=== PATIENT | male | born 1935 | race Caucasian/White ===

== ENCOUNTER → 2016-09-25 | Outpatient (CLI) | payer OTHER ==
[~2016-09-25] MED LIST: CLOT1CRE80 TOP; CO Q PO; FINA5TAB PO; OMEG10007 PO; POLYSOL4 OPB; PRED1SUS3 OPB
== END | disposition home or self-care (01) ==
LOC: C.LAB 07:53
PROVIDERS: ATTEND Urology
DX: Z00.00 Encounter for general adult medical examination without abnormal findings (principal); N40.0 Benign prostatic hyperplasia without lower urinary tract symptoms

== ENCOUNTER → 2016-12-18 | Outpatient (CLI) | payer OTHER ==
--- NOTE | 2016-12-18 16:06 | DIAGNOSTIC IMAGING REPORT ---
CHEST 2 VIEWS ROUTINE CLINICAL HISTORY: COUGH dyspnea COMPARISON STUDY: 11/04/2014 FINDINGS: Mild emphysematous change. No focal infiltrate. No evidence for significant cardiac enlargement. IMPRESSION: Chronic change. No acute process. Electronically signed by: Lucien Sidhu M.D. 12/18/2016 4:04 PM Dictated Date/Time: 12/18/2016 4:04 PM
== END | disposition home or self-care (01) ==
LOC: C.RADBC 15:55
PROVIDERS: ATTEND Physician Assistant Medical
DX: R05 Cough (principal)

== ENCOUNTER → 2017-09-25 | Outpatient (CLI) | payer OTHER ==
[2017-09-25 16:42] LABS: BASO % 0.3 %; BASO ABS # 0.02 K/uL (0-0.2); EOS % 3.6 %; EOS ABS # 0.25 K/uL (0-0.5); HEMATOCRIT 40.9 % (42-52); HEMOGLOBIN 14.1 g/dL (14.0-18.0); IG# 0.01 K/uL (0.00-0.02); LYMPH % 17.8 %; LYMPH ABS # 1.25 K/uL (1.2-3.4); MEAN CELL VOLUME 96.5 fL (80-100); MEAN CORPUSCULAR HEMOGLOBIN 33.3 pg (25-34); MEAN CORPUSCULAR HGB CONC 34.5 g/dl (32-36); MEAN PLATELET VOLUME 9.3 fL (7.4-10.4); MONO % 10.1 %; MONO ABS # 0.71 K/uL (0.11-0.59); NEUT % 68.1 %; PLATELET COUNT 204 K/uL (130-400); RED CELL DISTRIBUTION WIDTH CV 13.2 % (11.5-14.5); RED CELL DISTRIBUTION WIDTH SD 46.5 fL (36.4-46.3); WHITE BLOOD COUNT 7.04 K/uL (4.8-10.8)
[2017-09-25 17:05] LABS: ALBUMIN 3.6 gm/dl (3.4-5.0); ALT/SGPT 26 U/L (12-78); BLOOD UREA NITROGEN 20 mg/dl (7-18); CALCIUM 8.3 mg/dl (8.5-10.1); CARBON DIOXIDE 27 mmol/L (21-32); CREATININE 1.01 mg/dl (0.60-1.40); GLUCOSE 90 mg/dl (70-99); POTASSIUM 3.9 mmol/L (3.5-5.1); SODIUM 130 mmol/L (136-145); URIC ACID 5.2 mg/dl (2.6-7.2)
[2017-09-25 17:18] LABS: ALKALINE PHOSPHATASE 71 U/L (45-117); AST/SGOT 31 U/L (15-37); TOTAL PROTEIN 6.4 gm/dl (6.4-8.2)
== END | disposition home or self-care (01) ==
LOC: C.LAB 15:12
PROVIDERS: ATTEND Nurse Practitioner Family
DX: M79.671 Pain in right foot (principal)

== ENCOUNTER → 2017-09-27 | Outpatient (CLI) | payer OTHER ==
--- NOTE | 2017-09-27 16:04 | DIAGNOSTIC IMAGING REPORT ---
R FOOT MIN 3 VIEWS ROUTINE CLINICAL HISTORY: M79.671 Acute foot pain, [id number] pain COMPARISON: None. DISCUSSION: Considerable degenerative change first metatarsal phalangeal joint. Subchondral cyst formation. Mild reactive osteophytic change. Findings consistent with screw fixation distal aspects of the second third and fourth metatarsals. This is considered a nonacute process. Small heel spur. Subtalar joint is intact. There is no evidence for soft tissue swelling. IMPRESSION: 1. Considerable degenerative change first metatarsophalangeal joint. 2. Postoperative changes distal aspects second third and fourth metatarsals. 3. Small heel spur. The above report was generated using voice recognition software. It may contain grammatical, syntax or spelling errors. Electronically signed by: Lucien Sidhu M.D. 09/27/2017 4:02 PM Dictated Date/Time: 09/27/2017 4:01 PM
--- NOTE | 2017-09-27 16:05 | DIAGNOSTIC IMAGING REPORT ---
LEFT FOOT 3 VIEWS HISTORY: Left foot pain COMPARISON: None. FINDINGS: There is no fracture or dislocation. Soft tissues are unremarkable. Mild osteoarthritis the first MTP joint. Small plantar heel spur. Mild vascular calcifications. IMPRESSION: No fracture or dislocation within the left foot. Electronically signed by: Keon Pineda M.D. 09/27/2017 4:04 PM Dictated Date/Time: 09/27/2017 4:02 PM
== END | disposition home or self-care (01) ==
LOC: C.RAD 15:27
PROVIDERS: ATTEND Nurse Practitioner Family
DX: M79.671 Pain in right foot (principal)

== ENCOUNTER 2017-10-24 11:53 | Emergency (ER) | payer OTHER ==
[~2017-10-24] VITALS: Ht 175.3 cm; Wt 68.5 kg
[2017-10-24 12:01] VITALS: BP 123/79; PULSE 63; TEMP 36.6; O2SAT 99; Ht 175.3 cm; Wt 68.5 kg
[2017-10-24] MEDS ORDERED: ASPI81TA28 PO (12:24)
[2017-10-24] MEDS ORDERED: PRDFOPS OPB (12:24)
[2017-10-24] MEDS ORDERED: GALA8TAB PO (12:24)
[2017-10-24] MEDS ORDERED: APOA1CAP PO (12:24)
[2017-10-24] MEDS ORDERED: MIRA100T PO (12:24)
--- NOTE | 2017-10-24 13:38 | EMERGENCY ROOM VISIT NOTE ---
History Report prepared by Vera: Micheal Joshi Under the Supervision of: Dr. Feliberto House M.D. First contact with patient: 12:14 Chief Complaint: URINARY SYMPTOMS Stated Complaint: URINARY TRACT INFECTION Nursing Triage Summary: uti s/s for 2 weeks urologist unable to see him pt in ER with and would like urine test History of Present Illness The patient is a 81 year old male who presents to the Emergency Room with complaints of persistent urinary symptoms beginning two weeks ago. The patient' s symptoms include increased urinary frequency (usually at night) and lower back pain. He denies any pain with urination or hematuria. He rates his lower back pain as a 3/10 in severity. The patient tried to get in to see his PCP today, but was unable. He denies any abdominal pain or bloody stools. He is on medication for an enlarged prostate. The patient has used a heating pad at night for his back pain which has helped. He notes that he was shoveling snow yesterday and this may have caused his back pain. He denies drinking more water than normal recently. The patient adds that he mostly came to the ED today because he came along with his who is being evaluated for flu-like symptoms. Source of History: patient Onset: Two weeks ago Quality: other (urinary symptoms) Timing: other (persistent) Associated Symptoms: + back pain (lower), No abdominal pain, No hematochezia Note: The patient denies hematuria or pain with urination. Review of Systems See HPI for pertinent positives and negatives. A total of ten systems were reviewed and were otherwise negative. Past Medical & Surgical Medical Problems: (1) Arthritis (2) Cataract removal Surgical Problems: (1) H/O cornea transplant Family History Cancer Social History Smoking Status: Never Smoker Alcohol Use: occasionally Marital Status: Housing Status: lives with significant other Occupation Status: retired Current/Historical Medications Scheduled Apoaequorin (Prevagen), 10 MG PO DAILY Aspirin (Aspirin Ec), 81 MG PO DAILY Finasteride (Proscar), 5 MG PO DAILY Fish Oil ([place]-3), 1 CAP PO DAILY Galantamine Hydrobromide (Razadyne), 8 MG PO BID Mirabegron (Myrbetriq Er), 25 MG PO DAILY Prednisolone Acetate (Prednisolone Acetate), 1 DROP OPB DAILY Allergies Coded Allergies: No Known Allergies (Unverified , 09/15/13) Physical Exam Vital Signs Date Time Temp Pulse Resp B/P (MAP) Pulse Ox O2 Delivery O2 Flow Rate FiO2 10/24/17 12:01 36.6 63 20 123/79 99 Room Air Physical Exam GENERAL: Awake, alert, well-appearing, in no distress HENT: Normocephalic, Atraumatic. no hemotympanum bilaterally, lynne sign negative bilaterally. Oropharynx unremarkable. EYES: Normal conjunctiva. Sclera non-icteric. PERRL bilaterally. EOMI bilaterally. NECK: Supple. No nuchal rigidity. FROM. No JVD. No C-spine tenderness. RESPIRATORY: Clear to auscultation. No wheezes, rhonchi or rales bilaterally. CARDIAC: Regular rate, normal rhythm. Extremities warm and well perfused. Equal palpable radial pulses to the bilateral upper extremities. Equal palpable DP pulses to the bilateral lower extremities. ABDOMEN: Soft, non-distended. No tenderness to palpation. No rebound or guarding. No masses. Rovsig Negative. RECTAL: Deferred. MUSCULOSKELETAL: Chest examination reveals no tenderness. The back is symmetrical on inspection without obvious abnormality. There is no CVA tenderness to palpation. No joint edema. no c t or l spine tenderness LOWER EXTREMITIES: Calves are equal size bilaterally and non-tender. No edema. No discoloration. NEURO: Normal sensorium. No sensory or motor deficits noted. No pronator drift. No facial droop. No dysarthria. SKIN: No rash or jaundice noted. Medical Decision & Procedures Laboratory Results Test 10/24/17 12:10 Urine Color YELLOW Urine Appearance CLEAR (CLEAR) Urine pH 6.0 (4.5-7.5) Urine Specific [place] 1.015 (1.000-1.030) Urine Protein NEG (NEG) Urine Glucose (UA) NEG (NEG) Urine Ketones NEG (NEG) Urine Occult Blood NEG (NEG) Urine Nitrite NEG (NEG) Urine Bilirubin NEG (NEG) Urine Urobilinogen NEG (NEG) Urine Leukocyte Esterase NEG (NEG) Laboratory results reviewed by [facility] Course 1313: The patient was evaluated in room A2. A complete history and physical exam was performed. 1327: The patient's vital signs are stable. Physical exam is completely within normal limits. Urine is within normal limits with no blood. No CVA tenderness on exam. No cervical, thoracic, or lumbar tenderness. Given the normal physical exam, no emergent imaging warranted at this time. Patient will follow up with his urologist, and states that he just wanted to be sure he didn't have a UTI while his was evaluated in the ED for flu-like symptoms. Polyuria is likely due to BPH. DISCHARGE - Plan of care discussed with family and questions answered. The family was given both verbal and printed discharge instructions. The family verbalized understanding and ability to comply. The family is to seek outpatient follow up as noted in the discharge instructions. The family verbalized understanding and ability to comply. The family is discharged in stable condition. The family was instructed to return for worsening symptoms. Medical Decision The patient's vital signs are stable. Physical exam is completely within normal limits. Urine is within normal limits with no blood. No CVA tenderness on exam. No cervical, thoracic, or lumbar tenderness. Given the normal physical exam, no emergent imaging warranted at this time. Patient will follow up with his urologist, and states that he just wanted to be sure he didn't have a UTI while his was evaluated in the ED for flu-like symptoms. Polyuria is likely due to BPH. DISCHARGE - Plan of care discussed with family and questions answered. The family was given both verbal and printed discharge instructions. The family verbalized understanding and ability to comply. The family is to seek outpatient follow up as noted in the discharge instructions. The family verbalized understanding and ability to comply. The family is discharged in stable condition. The family was instructed to return for worsening symptoms. Medication Reconcilliation Current Medication List: was personally reviewed by me Blood Pressure Screening Patient's blood pressure: Normal blood pressure Blood pressure disposition: Did not require urgent referral Impression Primary Impression: Nocturnal polyuria Additional Impression: BPH (benign prostatic hyperplasia) Scribe Attestation The scribe's documentation has been prepared under my direction and personally reviewed by me in its entirety. I confirm that the note above accurately reflects all work, treatment, procedures, and medical decision making performed by me. The chart was completed utilizing [employer] voice recognition software. Grammatical errors, random word insertions, pronoun errors, and incomplete sentences are an occasional consequence of this system due to software limitations, ambient noise, and hardware issues. Any formal questions or concerns about the content, text, or information contained within the body of this dictation should be directly addressed to the physician for clarification. Departure Information Dispostion Home / Self-Care Referrals Annia Cruz MD (PCP) Forms HOME CARE DOCUMENTATION FORM, IMPORTANT VISIT INFORMATION Patient Instructions Benign Prostatic Hyperplasia, My [facility] [place] Additional Instructions Return to the emergency department if you develop blood in urine, pain with urination, fever greater than 100.4, inability to urinate, Problem Qualifiers Additional Impression: BPH (benign prostatic hyperplasia) Lower urinary tract symptom presence: unspecified whether lower urinary tract symptoms present Qualified Codes: N40.0 - Benign prostatic hyperplasia without lower urinary tract symptoms
== END 2017-10-24 13:29 | disposition home or self-care (01) ==
LOC: C.EDB 12:03 → C.EDA 13:29
DX: N40.1 Benign prostatic hyperplasia with lower urinary tract symptoms (principal); R35.1 Nocturia; M19.90 Unspecified osteoarthritis, unspecified site; Z98.49 Cataract extraction status, unspecified eye; Z94.7 Corneal transplant status; Z80.9 Family history of malignant neoplasm, unspecified; Z79.82 Long term (current) use of aspirin; Z79.899 Other long term (current) drug therapy

== ENCOUNTER → 2017-11-19 | Outpatient (CLI) | payer OTHER ==
[~2017-11-19] MED LIST changes: +APOA1CAP PO; +ASPI81TA28 PO; -CLOT1CRE80 TOP; -CO Q PO; +GALA8TAB PO; +MIRA100T PO; -POLYSOL4 OPB; +PRDFOPS OPB; -PRED1SUS3 OPB
[2017-11-19 15:39] LABS: BASO % 0.2 %; BASO ABS # 0.02 K/uL (0-0.2); EOS % 2.3 %; EOS ABS # 0.19 K/uL (0-0.5); HEMATOCRIT 41.8 % (42-52); HEMOGLOBIN 14.7 g/dL (14.0-18.0); IG# 0.01 K/uL (0.00-0.02); LYMPH % 19.8 %; LYMPH ABS # 1.67 K/uL (1.2-3.4); MEAN CELL VOLUME 94.8 fL (80-100); MEAN CORPUSCULAR HEMOGLOBIN 33.3 pg (25-34); MEAN CORPUSCULAR HGB CONC 35.2 g/dl (32-36); MEAN PLATELET VOLUME 8.8 fL (7.4-10.4); MONO % 8.2 %; MONO ABS # 0.69 K/uL (0.11-0.59); NEUT % 69.4 %; NEUT ABS # 5.86 K/uL (1.4-6.5); PLATELET COUNT 263 K/uL (130-400); RED CELL DISTRIBUTION WIDTH CV 13.2 % (11.5-14.5); RED CELL DISTRIBUTION WIDTH SD 45.8 fL (36.4-46.3); WHITE BLOOD COUNT 8.44 K/uL (4.8-10.8)
[2017-11-19 16:18] LABS: ALBUMIN 3.5 gm/dl (3.4-5.0); ALT/SGPT 23 U/L (12-78); AST/SGOT 17 U/L (15-37); BLOOD UREA NITROGEN 22 mg/dl (7-18); CALCIUM 8.6 mg/dl (8.5-10.1); CARBON DIOXIDE 28 mmol/L (21-32); CREATININE 1.02 mg/dl (0.60-1.40); GLUCOSE 104 mg/dl (70-99); LIPASE 351 U/L (73-393); POTASSIUM 3.9 mmol/L (3.5-5.1); SODIUM 132 mmol/L (136-145)
[2017-11-19 16:21] LABS: ALKALINE PHOSPHATASE 96 U/L (45-117); TOTAL PROTEIN 6.7 gm/dl (6.4-8.2)
== END | disposition home or self-care (01) ==
LOC: C.LAB 14:34
PROVIDERS: ATTEND Nurse Practitioner Family
DX: R11.10 Vomiting, unspecified (principal)

== ENCOUNTER → 2017-11-20 | Outpatient (CLI) | payer OTHER | END | disposition home or self-care (01) | LOC: C.LAB 14:37 | PROVIDERS: ATTEND Nurse Practitioner Family | DX: R11.10 Vomiting, unspecified (principal) ==

== ENCOUNTER → 2017-11-26 | Outpatient (CLI) | payer OTHER | END | disposition home or self-care (01) | LOC: C.RDSM 14:45 | PROVIDERS: ATTEND Family Medicine | DX: M54.5 Low back pain (principal) ==

== ENCOUNTER → 2017-12-03 | Outpatient (CLI) | payer OTHER ==
[~2017-12-03] MED LIST changes: +OPTIRAY 320 IV PRN
--- NOTE | 2017-12-03 13:49 | DIAGNOSTIC IMAGING REPORT ---
CT ABD/PELVIS IV AND ORAL CONT CLINICAL HISTORY: R19.4 Change in bowel habits R63.4 Weight loss, [id number]. COMPARISON STUDY: 09/15/2013 TECHNIQUE: Following the IV administration of 93 mL of Optiray-320, CT scan of the abdomen and pelvis was performed from the lung bases to the proximal femurs. Images are reviewed in the axial, sagittal, and coronal planes. IV contrast was administered without complication. A dose lowering technique was utilized adhering to the principles of ALARA. CT DOSE: 269.22 mGy.cm FINDINGS: Lower chest: The heart is normal in size and configuration, without pericardial effusion. The lung bases and pleural spaces are clear. Liver: The contrast-enhanced liver is normal in size, contour, and attenuation. There is no intrahepatic biliary ductal dilatation. The hepatic veins and portal veins are patent. Gallbladder: Unremarkable. Spleen: Normal in size and attenuation. Pancreas: Unremarkable. Adrenal glands: Unremarkable. Kidneys: There is symmetric renal cortical enhancement. The kidneys are normal in size without hydronephrosis. 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 There is no evidence of acute diverticulitis. There are no findings to indicate acute appendicitis. There is mild fecal retention. Peritoneum: There is no intraperitoneal free air or abdominal ascites. There is a small fat-containing right inguinal hernia. Vasculature: The abdominal aorta is normal in course and caliber. Adenopathy: None. Pelvic viscera: The bladder, and pelvic viscera are unremarkable. Skeletal structures: No destructive osseous lesions are seen. IMPRESSION: 1. No acute abdominal or pelvic findings 2. No evidence of bowel obstruction. No evidence of free air 3. No acute inflammatory changes 4. Small fat-containing right inguinal hernia Electronically signed by: Edmar Waldrop M.D. 12/03/2017 1:47 PM Dictated Date/Time: 12/03/2017 1:42 PM
== END | disposition home or self-care (01) ==
LOC: C.CTS 13:04
PROVIDERS: ATTEND Physician Assistant
DX: R63.4 Abnormal weight loss (principal); R11.10 Vomiting, unspecified; R19.4 Change in bowel habit

== ENCOUNTER → 2018-01-03 | Day surgery (SDC) | payer OTHER ==
[2017-12-12 16:08] VITALS: Ht 177.8 cm; Wt 67.3 kg
[~2018-01-03] VITALS: Ht 177.8 cm; Wt 67.3 kg
[~2018-01-03] MED LIST changes: +MISCCAP80 PO; +NAPR-1169 PO; -OPTIRAY 320 IV PRN; +PRLSR20 PO; +SODIUM CHLORIDE 0.9% 500ML 500 ML IV ONE
--- NOTE | 2018-01-03 12:25 | Endo History and Physical ---
History & Physical Date of Service: Jan 03, 2018. Chief Complaint: Weight loss Referring Physician: Annia Cruz History of Present Illness 82 yo CM who presents for EGD secondary to weight loss. Past Surgical History Hx Cardiac Surgery: No Hx Internal Defibrillator: No Hx Pacemaker: No Hx Abdominal Surgery: Yes (BILATERAL INGUINAL HERNIA REPAIR) Hx of Implantable Prosthesis: No Hx Post-Op Nausea and Vomiting: No Hx Cancer Surgery: No Hx Thoracic Surgery: No Hx Orthopedic: No Hx Urinary Tract Surgery: No Family History None Social History Smoking Status: Never Smoker Hx Substance Use: No Hx Alcohol Use: Yes (1X A MONTH) Allergies Coded Allergies: No Known Allergies (Unverified , 01/03/18) Current Medications Reported Home Medications Medications Dose Route/Sig Max Daily Dose Days Date Category Naprosyn (Naproxen) 500 Mg Tab 500 Mg PO BID 01/03/18 Reported Probiotic (Probiotic Product) 1 Cap Cap 1 Cap PO QPM 12/12/17 Reported Prilosec (Omeprazole) 20 Mg Capcr 20 Mg PO BID 12/12/17 Reported Prevagen (Apoaequorin) 10 Mg Cap 10 Mg PO QAM 10/24/17 Reported Prednisolone Acetate 75 Drops/5 Ml Susp 1 Drop OPB QAM 10/24/17 Reported Razadyne (Galantamine Hydrobromide) 8 Mg Tab 8 Mg PO BID 10/24/17 Reported Aspirin Ec (Aspirin) 81 Mg Tab 81 Mg PO QPM 10/24/17 Reported Myrbetriq Er (Mirabegron) 25 Mg Tab 25 Mg PO QAM 10/24/17 Reported [place]-3 (Fish Oil) 1 Ea Cap 1 Cap PO QPM 09/15/13 Reported Proscar (Finasteride) 5 Mg Tab 5 Mg PO QAM 09/15/13 Reported Vital Signs Weight (Kilograms): 67.27 Height (Feet): 5 Height (Inches): 10 Date Time Temp Pulse Resp B/P (MAP) Pulse Ox O2 Delivery O2 Flow Rate FiO2 01/03/18 11:52 36.5 73 22 152/99 (116) 100 Room Air Physical Exam General Appearance: WD/WN, no apparent distress Respiratory/Chest: Auscultation: breath sounds normal Cardiovascular: Heart Auscultation: RRR Abdomen: Bowel Sounds: normal Inspection & Palpation: soft, non-distended, no tenderness, guarding & rebound Assessment and Plan Assessment: 82 yo CM who presents for EGD secondary to weight loss. Plan: Proceed with EGD.
--- NOTE | 2018-01-03 12:43 | Discharge Instructions ---
Endoscopy Patient Instructions Date / Procedure(s) Performed Jan 03, 2018. EGD Allergy Information Coded Allergies: No Known Allergies (Unverified , 01/03/18) Discharge Date / Findings Jan 03, 2018. Normal EGD Medication Instructions Stopped Medication(s): 81mg Aspirin taken on 01/02/18 OK to resume all medications today as prescribed Reported Home Medications Medications Dose Route/Sig Max Daily Dose Days Date Category Naprosyn (Naproxen) 500 Mg Tab 500 Mg PO BID 01/03/18 Reported Probiotic (Probiotic Product) 1 Cap Cap 1 Cap PO QPM 12/12/17 Reported Prilosec (Omeprazole) 20 Mg Capcr 20 Mg PO BID 12/12/17 Reported Prevagen (Apoaequorin) 10 Mg Cap 10 Mg PO QAM 10/24/17 Reported Prednisolone Acetate 75 Drops/5 Ml Susp 1 Drop OPB QAM 10/24/17 Reported Razadyne (Galantamine Hydrobromide) 8 Mg Tab 8 Mg PO BID 10/24/17 Reported Aspirin Ec (Aspirin) 81 Mg Tab 81 Mg PO QPM 10/24/17 Reported Myrbetriq Er (Mirabegron) 25 Mg Tab 25 Mg PO QAM 10/24/17 Reported [place]-3 (Fish Oil) 1 Ea Cap 1 Cap PO QPM 09/15/13 Reported Proscar (Finasteride) 5 Mg Tab 5 Mg PO QAM 09/15/13 Reported Provider Instructions Activity Restrictions - No exercising or heavy lifting for 24 hours. - Do not drink alcohol the day of the procedure. - Do not drive a car or operate machinery until the day after the procedure. - Do not make any important decisions or sign important papers in 24 hours after the procedure. Following Day: - Return to full activity which may include returning to work/school. Diet Start your diet with liquids and light foods (jello, soup, juice, toast). Then eat your usual diet if not nauseated. Treatment For Common After Affects For mild abdominal pain, bloating, or excessive gas: - Rest - Eat lightly - Lie on right side Follow-Up Information Follow-up with Annia Cruz as scheduled Anesthesia Information What You Should Know You have had a procedure that required some medicine to reduce anxiety and discomfort. This treatment is called moderate sedation. After receiving the treatment, you may be sleepy, but you will be able to breathe on your own. The effects of the treatment may last for several hours. Follow these instructions along with Activity/Diet recommendations noted above: * Do NOT do anything where dizziness or clumsiness would be dangerous. * Rest quietly at home today, then you can be up and about tomorrow. * Have a responsible person stay with you the rest of today. * You may have had an I.V. today. If so, you may take the dressing off later today. Recommendations Call your doctor if: * Trouble breathing * Continuous vomiting for more than 24 hours * Temperature above 101 degrees * Severe abdominal pain or bloating * Pain not relieved by pain medicine ordered * There is increased drainage or redness from any incision * A large amount of rectal bleeding greater than 2-3 tablespoons. (If you had a polyp/s removed or have hemorrhoids, a small amount of blood - from the rectum is to be expected.) * You have any unanswered questions or concerns. IN THE EVENT OF A SERIOUS EMERGENCY, GO TO THE NEAREST EMERGENCY ROOM Your discharge instructions were prepared by provider Robel Onofre. Patient Instructions Signature Page Ziggy Emerson Patient (or Guardian) Signature/Date: I have read and understand the instructions given to me by my caregivers. Caregiver/RN/Doctor Signature/Date: The above-named patient and/or guardian has received patient instructions on this date. + Original Patient Signature Page (only) stays with chart. Please make copy for patient.
--- NOTE | 2018-01-03 12:43 | GI REPORT ---
Procedure Date: 01/03/2018 12:28 PM Procedure: Upper GI endoscopy Indications: Weight loss Medicines: Monitored Anesthesia Care Complications: No immediate complications. Estimated Blood Loss: Estimated blood loss: none. Procedure: Pre-Anesthesia Assessment: - Prior to the procedure, a History and Physical was performed, and patient medications and allergies were reviewed. The patient's tolerance of previous anesthesia was also reviewed. The risks and benefits of the procedure and the sedation options and risks were discussed with the patient. All questions were answered, and informed consent was obtained. Prior Anticoagulants: The patient has taken aspirin, last dose was 1 day prior to procedure. ASA Grade Assessment: II - A patient with mild systemic disease. After reviewing the risks and benefits, the patient was deemed in satisfactory condition to undergo the procedure. After obtaining informed consent, the endoscope was passed under direct vision. Throughout the procedure, the patient's blood pressure, pulse, and oxygen saturations were monitored continuously. The On-site loaner was introduced through the mouth, and advanced to the second part of duodenum. The upper GI endoscopy was accomplished without difficulty. The patient tolerated the procedure well. Findings: The esophagus was normal. The stomach was normal. The examined duodenum was normal. Impression: - Normal esophagus. - Normal stomach. - Normal examined duodenum. - No specimens collected. Recommendation: - Resume previous diet. - Continue present medications. - Return to primary care physician as previously scheduled. Robel Onofre, DO 01/03/2018 12:42:59 PM This report has been signed electronically. Note Initiated On: 01/03/2018 12:28 PM I attest to the content of the Intraoperative Record and orders documented therein, exceptions below
--- NOTE | 2018-01-03 13:06 | Anesthesiology Progress Note ---
Anesthesia Post Op Note Date & Time Jan 03, 2018 at 13:06 Vital Signs Vital Signs Past 12 Hours Date Time Temp Pulse Resp B/P (MAP) Pulse Ox O2 Delivery O2 Flow Rate FiO2 01/03/18 11:52 36.5 73 22 152/99 (116) 100 Room Air Notes Mental Status: alert / awake / arousable, participated in evaluation Pt Amnestic to Procedure: Yes Nausea / Vomiting: adequately controlled Pain: adequately controlled Airway Patency, RR, SpO2: stable & adequate BP & HR: stable & adequate Hydration State: stable & adequate Anesthetic Complications: no major complications apparent
[2018-01-03 13:20] VITALS: BP 157/97; PULSE 74; O2SAT 98
== END | disposition home or self-care (01) ==
LOC: C.GI 11:32
PROVIDERS: ATTEND Internal Medicine
DX: R63.4 Abnormal weight loss (principal); F41.9 Anxiety disorder, unspecified; K21.9 Gastro-esophageal reflux disease without esophagitis; M19.90 Unspecified osteoarthritis, unspecified site; Z98.890 Other specified postprocedural states; Z79.899 Other long term (current) drug therapy; Z79.82 Long term (current) use of aspirin; Z79.52 Long term (current) use of systemic steroids

== ENCOUNTER → 2018-01-17 | Outpatient (CLI) | payer OTHER ==
[~2018-01-17] MED LIST changes: -SODIUM CHLORIDE 0.9% 500ML 500 ML IV ONE
--- NOTE | 2018-01-17 10:57 | DIAGNOSTIC IMAGING REPORT ---
MRI OF THE LUMBAR SPINE WITHOUT IV CONTRAST CLINICAL HISTORY: Low back pain. COMPARISON STUDY: Abdominal CT dated 12/03/2017. TECHNIQUE: MRI of the lumbar spine is performed utilizing various T1 and T2 sequences in the axial and sagittal planes. IV contrast was not administered for this examination. The examination is degraded by motion artifact. FINDINGS: Lumbar spine: Marrow signal intensity is markedly heterogeneous. Vertebral body height is maintained throughout the lumbar spine. There are bilateral pars defects at L5 with 8 mm anterolisthesis at L5-S1. Minimal anterolisthesis is seen at L4-L5. A mild compression deformity of T11 and a moderate compression deformity of T12 are similar to the 12/03/2017 CT scan. There is significant edema within the body of T12 indicating that this fracture is likely subacute. Small fragments are retropulsed by up to 4 mm. There is extensive chronic degenerative endplate change with associated endplate edema seen at all lumbar levels. The transverse and spinous processes are intact as visualized. No lytic or blastic lesion is seen. Anterior osteophytes are seen throughout. Intervertebral discs: There is degenerative disc desiccation and advanced loss of height seen at all lumbar levels. Spinal cord: The visualized spinal cord is normal in morphology and signal intensity. The conus medullaris terminates at the level of L1. The nerve roots of the cauda equina are normal in morphology. L1-L2: There is a posterior disc bulge eccentric to the right with annular fissure. This causes right-sided subarticular stenosis and likely impinges on the exiting right L1 and the transiting right L2 nerve roots. There is no significant acquired compromise of the central canal. The neural foramina are patent. L2-L3: There is broad-based posterior disc bulge. There is no significant acquired compromise of the central canal. There is bilateral subarticular stenosis, right greater than left. This likely impinges on the exiting right L2 and transiting right L3 nerve roots. Facet arthropathy causes mild left-sided neural foraminal stenosis. L3-L4: There is broad-based posterior disc bulge. There is no significant acquired compromise of the central canal at this level. Facet arthropathy causes moderate left neural foraminal stenosis. There is bilateral subarticular stenosis, left greater than right. This likely impinges on the exiting left L3 nerve root. Hypertrophy of the ligamentum flavum and osteophyte formation may impinge on the transiting left-sided nerve roots. L4-L5: There is broad-based posterior disc bulge. There is no significant acquired compromise of the central canal. There is bilateral subarticular stenosis with impingement on the exiting bilateral L4 nerve roots. Bulky facet arthropathy causes severe left and moderate right neural foraminal stenosis. Facet arthropathy may impinge on the transiting bilateral nerve roots posteriorly. L5-S1: There is posterior disc bulge eccentric to the right. No significant acquired compromise of the central canal is identified. Disc bulge in conjunction with anterolisthesis causes right-sided subarticular stenosis with impingement on the exiting right L5 nerve root. This also abuts the transiting left L1 nerve root. Facet arthropathy causes moderate to severe right-sided neural foraminal stenosis. Soft tissues: There is mild fatty atrophy of the paraspinous musculature. The retroperitoneal structures are grossly unremarkable, but incompletely assessed. Sacrum: The visualized sacrum is normal in morphology and signal intensity. IMPRESSION: 1. There is a moderate compression deformity of T12 with significant marrow edema. This is unchanged from 12/03/2017 and is likely subacute. 2. A mild compression deformity of T11 is unchanged. No significant marrow edema is seen. 3. Advanced lumbosacral spondylosis as above. See discussion for detailed level by level analysis. 4. No destructive osseous lesion is identified. Dictated: 01/17/2018 9:36 AM Transcribed: 01/17/2018 10:57 AM [place] Electronically signed by: Ambrosio Hernández M.D. 01/17/2018 11:30 AM Dictated Date/Time: 01/17/2018 9:36 AM
== END | disposition home or self-care (01) ==
LOC: C.MRIBC 08:26
PROVIDERS: ATTEND Family Medicine
DX: M53.84 Other specified dorsopathies, thoracic region (principal); M47.897 Other spondylosis, lumbosacral region

== ENCOUNTER 2018-02-06 18:09 | Emergency (ER) | payer OTHER ==
[~2018-02-06] VITALS: Ht 172.7 cm; Wt 68.2 kg
[2018-02-06 18:16] VITALS: TEMP 36.8; Ht 172.7 cm; Wt 68.2 kg
--- NOTE | 2018-02-06 18:38 | EMERGENCY ROOM VISIT NOTE ---
History Report prepared by Vera: Edwin Davis Under the Supervision of: Dr. Sesar Manrique M.D. First contact with patient: 18:22 Chief Complaint: EDEMA TO EXTREMITY Stated Complaint: BOTH ANKLES SWOLLEN History of Present Illness The patient is an 82 year old male who presents to the Emergency Room with complaints of constant bilateral ankle swelling starting last night. The patient state that he has never had swelling like this in the past. He denies any chest pain, shortness of breath, fever, leg pain, numbness, and weakness. He does occasionally get the chills. The patient states that he is not currently on any blood pressure medications, and he states that he just started taking naproxen. The patient notes that he was at [place] for his back problems , and he states that he called his PCP afterwards about the leg swelling, and they told him to come to the ED for evaluation or they could see him tomorrow in the office. The patient notes that he is not very active recently due to his back pain. He denies any kidney problems or thyroid problems. Source of History: patient Onset: last night Position: ankle (bilateral) Quality: other (swelling) Timing: constant Associated Symptoms: + chills, No fevers, No chest pain, No SOB, No weakness , No numbness Review of Systems See HPI for pertinent positives & negatives. A total of 10 systems reviewed and were otherwise negative. Past Medical & Surgical Medical Problems: (1) Arthritis (2) Cataract removal Surgical Problems: (1) H/O cornea transplant Old medical records were reviewed. Nurse's notes were reviewed and I agree with. Family History Cancer Social History Smoking Status: Former Smoker Alcohol Use: occasionally Marital Status: Housing Status: lives with significant other Occupation Status: retired Current/Historical Medications Scheduled Apoaequorin (Prevagen), 10 MG PO QAM Aspirin (Aspirin Ec), 81 MG PO QPM Finasteride (Proscar), 5 MG PO QAM Fish Oil (Salina-3), 1 CAP PO QPM Gabapentin (Gabapentin), 300 MG PO UD Galantamine Hydrobromide (Razadyne), 12 MG PO BID Mirabegron (Myrbetriq Er), 25 MG PO QAM Naproxen (Naprosyn), 500 MG PO BID Omeprazole (Prilosec), 20 MG PO BID Prednisolone Acetate (Prednisolone Acetate), 1 DROP OPB QAM Probiotic Product (Probiotic), 1 CAP PO QPM Allergies Coded Allergies: Rivastigmine (Verified Allergy, Severe, NAUSEA & VOMITING, 02/06/18) Donepezil (Verified Adverse Reaction, Severe, LOOSE STOOLS & GAS, 02/06/18) INFO FROM [facility] Physical Exam Vital Signs Date Time Temp Pulse Resp B/P (MAP) Pulse Ox O2 Delivery O2 Flow Rate FiO2 02/06/18 19:51 74 17 127/71 96 Room Air 02/06/18 18:16 36.8 78 18 123/83 96 Room Air Physical Exam General: Non-ill appearing older male in no acute distress. HEENT: Normal cephalic atraumatic. Pupils are equal round and reactive to light. Extraocular movements are intact. Oropharynx is pink with moist mucous membranes. No swelling of the mouth lips or tongue. Neck: Supple with a midline trachea. No meningeal signs or stiffness, no JVD or bruits. No Stridor. Chest: Clear to auscultation bilaterally. No wheezes or rhonchi. No increased work of breathing. Heart: regular rate and rhythm. Abdomen: Soft nontender, nondistended without rebound guarding or rigidity. Extremities: 1+ bilateral lower extremity edema. Normal pulse exam. Previous surgery on the right foot. No evidence of cellulitis. No cyanosis or clubbing. No calf tenderness or assymetry Spine/Back. Mildly tender in the lower lumbar spine. No CVA tenderness Skin: Good turgor without rashes. Neurologic exam: Cranial nerves two through 12 are intact. Motor and sensation are intact and symmetrical throughout. Medical Decision & Procedures ER Provider Diagnostic Interpretation: Radiology results as stated below per my review and radiologist interpretation: BILATERAL LOWER EXTREMITY VENOUS DOPPLER HISTORY: Leg pain. COMPARISON STUDY: None. FINDINGS: There is normal compressibility, flow, and augmentation within the bilateral lower extremity deep venous systems. IMPRESSION: No DVT within the right or left lower extremity. Electronically signed by: Keon Pineda M.D. 02/06/2018 7:43 PM Dictated Date/Time: 02/06/2018 7:43 PM CHEST ONE VIEW PORTABLE HISTORY: Atypical CHEST PAIN COMPARISON: Chest 12/18/2016. FINDINGS: The heart is mildly enlarged. Left basilar linear densities favor scarring or atelectasis. The lungs are otherwise clear. No pleural effusions. No pneumothorax. 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 Mildly tortuous thoracic aorta. IMPRESSION: Mild cardiomegaly. Left basilar linear densities favor subsegmental atelectasis. Electronically signed by: Keon Pineda M.D. 02/06/2018 7:23 PM Dictated Date/Time: 02/06/2018 7:20 PM Laboratory Results 02/06/18 17:50 Red Blood Count 4.06, Mean Corpuscular Volume 95.8, Mean Corpuscular Hemoglobin 33.3, Mean Corpuscular Hemoglobin Concent 34.7, Mean Platelet Volume 8.2, Neutrophils (%) (Auto) 65.3, Lymphocytes (%) (Auto) 17.8, Monocytes (%) (Auto) 11.9, Eosinophils (%) (Auto) 4.5, Basophils (%) (Auto) 0.3, Neutrophils # (Auto ) 3.73, Lymphocytes # (Auto) 1.02, Monocytes # (Auto) 0.68, Eosinophils # (Auto ) 0.26, Basophils # (Auto) 0.02 02/06/18 17:50 Test 02/06/18 17:50 02/06/18 18:55 White Blood Count 5.72 K/uL (4.8-10.8) Red Blood Count 4.06 M/uL (4.7-6.1) Hemoglobin 13.5 g/dL (14.0-18.0) Hematocrit 38.9 % (42-52) Mean Corpuscular Volume 95.8 fL (80-100) Mean Corpuscular Hemoglobin 33.3 pg (25-34) Mean Corpuscular Hemoglobin Concent 34.7 g/dl (32-36) Platelet Count 258 K/uL (130-400) Mean Platelet Volume 8.2 fL (7.4-10.4) Neutrophils (%) (Auto) 65.3 % Lymphocytes (%) (Auto) 17.8 % Monocytes (%) (Auto) 11.9 % Eosinophils (%) (Auto) 4.5 % Basophils (%) (Auto) 0.3 % Neutrophils # (Auto) 3.73 K/uL (1.4-6.5) Lymphocytes # (Auto) 1.02 K/uL (1.2-3.4) Monocytes # (Auto) 0.68 K/uL (0.11-0.59) Eosinophils # (Auto) 0.26 K/uL (0-0.5) Basophils # (Auto) 0.02 K/uL (0-0.2) RDW Standard Deviation 50.5 fL (36.4-46.3) RDW Coefficient of Variation 14.3 % (11.5-14.5) Immature Granulocyte % (Auto) 0.2 % Immature Granulocyte # (Auto) 0.01 K/uL (0.00-0.02) Anion Gap 4.0 mmol/L (3-11) Est Creatinine Clear Calc Drug Dose 55.7 ml/min Estimated GFR () 80.1 Estimated GFR (Non- 69.1 BUN/Creatinine Ratio 17.6 (10-20) Calcium Level 8.4 mg/dl (8.5-10.1) Total Bilirubin 0.8 mg/dl (0.2-1) Direct Bilirubin 0.2 mg/dl (0-0.2) Aspartate Amino Transf (AST/SGOT) 26 U/L (15-37) Alanine Aminotransferase (ALT/SGPT) 24 U/L (12-78) Alkaline Phosphatase 90 U/L (45-117) Pro-B-Type Natriuretic Peptide 556 pg/ml (0-1800) Total Protein 6.8 gm/dl (6.4-8.2) Albumin 3.7 gm/dl (3.4-5.0) Lipase 435 U/L (73-393) Thyroid Stimulating Hormone (TSH) 4.410 uIu/ml (0.300-4.500) Bedside Troponin I < 0.030 ng/ml (0-0.045) Laboratory studies as stated above per my review. ECG Per My Interpretation Indication: other (edema) Rate (beats per minute): 77 Rhythm: normal sinus Findings: no acute ischemic change, no ectopy Comparison ECG Date: 11/03/08 Change: no significant change ED Course 1824: Past medical records reviewed. The patient was evaluated in room B4, and a complete history and physical examination were performed. 1921: I reevaluated the patient, and he is doing well. He is getting his ultrasound now. 1954: Upon reevaluation, the patient is doing well. I discussed the results and treatment plan with him. He verbalized agreement of the treatment plan. The patient was discharged home. Medical Decision Differentials include, but are not limited to; edema, CHF, medication side effect, kidney disease, thyroid disease, electrolyte or metabolic abnormality. This patient comes in as described above. He has had bilateral lower extremity edema which apparently started yesterday. On exam, he has 1+ pitting edema just above the ankles mostly medially. He has no evidence of cellulitis. He is neurologically and neurovascularly intact. he seems asymptomatic otherwise. he has had no chest pain or shortness of breath. He has been having some back issues and was seen at [facility] today and schedule have some pain management for this. IV access established multiple blood testing was obtained. chest x-ray, EKG, and urinalysis as well as bilateral ultrasounds were obtained. He was reassessed frequently. We also did review his med list for possible etiologies there for swelling as well. EKG does not suggest any acute ischemic changes. Chest x-ray shows no findings to suggest pulmonary edema. He has no white count or fever to suggest infection. Troponin is also negative. He has normal kidney function. Thyroid is within normal limits in regards to TSH. Ultrasound was negative and there is no evidence of DVT. This may be from the NSAID that he has been taking. It could also be somewhat situational as he has been sitting around more than usual. He is actually going to stop NSAID today and started on gabapentin instead. He is to keep his legs elevated and return if: Worsening of symptoms, fever or chills, chest pain, shortness of breath, any new problems or concerns. The patient and his were happy the plan and he was discharged to home. Medication Reconcilliation Current Medication List: was personally reviewed by me Blood Pressure Screening Patient's blood pressure: Normal blood pressure Impression Primary Impression: Bilateral lower extremity edema Scribe Attestation The scribe's documentation has been prepared under my direction and personally reviewed by me in its entirety. I confirm that the note above accurately reflects all work, treatment, procedures, and medical decision making performed by me. Departure Information Dispostion Home / Self-Care Referrals Annia Cruz MD (PCP) Forms HOME CARE DOCUMENTATION FORM, IMPORTANT VISIT INFORMATION, WORK / SCHOOL INSTRUCTIONS Patient Instructions My [facility] Additional Instructions Rest. Keep your legs elevated when you are sitting down Stop the Naprosyn- it potentially could be causing her symptoms Return if: Increasing pain or swelling, chest pain, shortness of breath, fever chills, any new problems or concerns Follow-up with your doctor in the next couple days for recheck or return to the ER at any point if symptoms worsen
[2018-02-06 19:04] LABS: BASO % 0.3 %; BASO ABS # 0.02 K/uL (0-0.2); EOS % 4.5 %; EOS ABS # 0.26 K/uL (0-0.5); HEMATOCRIT 38.9 % (42-52); HEMOGLOBIN 13.5 g/dL (14.0-18.0); IG# 0.01 K/uL (0.00-0.02); LYMPH % 17.8 %; LYMPH ABS # 1.02 K/uL (1.2-3.4); MEAN CELL VOLUME 95.8 fL (80-100); MEAN CORPUSCULAR HEMOGLOBIN 33.3 pg (25-34); MEAN CORPUSCULAR HGB CONC 34.7 g/dl (32-36); MEAN PLATELET VOLUME 8.2 fL (7.4-10.4); MONO % 11.9 %; MONO ABS # 0.68 K/uL (0.11-0.59); NEUT % 65.3 %; NEUT ABS # 3.73 K/uL (1.4-6.5); PLATELET COUNT 258 K/uL (130-400); RED CELL DISTRIBUTION WIDTH CV 14.3 % (11.5-14.5); RED CELL DISTRIBUTION WIDTH SD 50.5 fL (36.4-46.3); WHITE BLOOD COUNT 5.72 K/uL (4.8-10.8)
--- NOTE | 2018-02-06 19:24 | DIAGNOSTIC IMAGING REPORT ---
CHEST ONE VIEW PORTABLE HISTORY: Atypical CHEST PAIN COMPARISON: Chest 12/18/2016. FINDINGS: The heart is mildly enlarged. Left basilar linear densities favor scarring or atelectasis. The lungs are otherwise clear. No pleural effusions. No pneumothorax. 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 Mildly tortuous thoracic aorta. IMPRESSION: Mild cardiomegaly. Left basilar linear densities favor subsegmental atelectasis. Electronically signed by: Keon Pineda M.D. 02/06/2018 7:23 PM Dictated Date/Time: 02/06/2018 7:20 PM
[2018-02-06] MEDS ORDERED: GALA12TA PO (19:26)
[2018-02-06] MEDS ORDERED: GABA-1219 PO (19:26)
[2018-02-06 19:36] LABS: ALBUMIN 3.7 gm/dl (3.4-5.0); CALCIUM 8.4 mg/dl (8.5-10.1); CREATININE 1.02 mg/dl (0.60-1.40); POTASSIUM 3.8 mmol/L (3.5-5.1); TOTAL PROTEIN 6.8 gm/dl (6.4-8.2)
--- NOTE | 2018-02-06 19:45 | DIAGNOSTIC IMAGING REPORT ---
BILATERAL LOWER EXTREMITY VENOUS DOPPLER HISTORY: Leg pain. COMPARISON STUDY: None. FINDINGS: There is normal compressibility, flow, and augmentation within the bilateral lower extremity deep venous systems. IMPRESSION: No DVT within the right or left lower extremity. Electronically signed by: Keon Pineda M.D. 02/06/2018 7:43 PM Dictated Date/Time: 02/06/2018 7:43 PM
[2018-02-06 19:51] VITALS: BP 127/71; PULSE 74; O2SAT 96
== END 2018-02-06 20:20 | disposition home or self-care (01) ==
LOC: C.EDB 18:11
DX: R60.0 Localized edema (principal); M54.9 Dorsalgia, unspecified; Z87.891 Personal history of nicotine dependence; Z79.82 Long term (current) use of aspirin; Z79.1 Long term (current) use of non-steroidal anti-inflammatories (NSAID); Z79.899 Other long term (current) drug therapy; Z88.8 Allergy status to other drugs, medicaments and biological substances

== ENCOUNTER → 2018-04-28 | Outpatient (CLI) | payer OTHER ==
[~2018-04-28] MED LIST changes: -APOA1CAP PO; +GABA-113 PO; +GALA12TA PO; -GALA8TAB PO; +MIRA1TAB3 PO; +MULTTAB58 PO; -NAPR-1169 PO; +OXYM-46; +SILD1TAB19 PO; +TAMS0.4C38 PO; +UBIQ1CAP8 PO
[2018-04-28 14:30] LABS: BLOOD UREA NITROGEN 15 mg/dl (7-18); CALCIUM 8.5 mg/dl (8.5-10.1); CARBON DIOXIDE 28 mmol/L (21-32); CHOLESTEROL 160 mg/dl (0-200); GLUCOSE 89 mg/dl (70-99); LDL CHOLESTEROL CALCULATED 92 mg/dl; POTASSIUM 4.2 mmol/L (3.5-5.1); SODIUM 134 mmol/L (136-145)
== END | disposition home or self-care (01) ==
LOC: C.LABBC 09:54
PROVIDERS: ATTEND Nurse Practitioner Family
DX: R39.15 Urgency of urination (principal); R32 Unspecified urinary incontinence; E87.1 Hypo-osmolality and hyponatremia; Z13.220 Encounter for screening for lipoid disorders

== ENCOUNTER → 2018-05-05 | Outpatient (CLI) | payer OTHER | END | disposition home or self-care (01) | LOC: C.MAMM 14:05 | PROVIDERS: ATTEND Nurse Practitioner Family | DX: Z13.820 Encounter for screening for osteoporosis (principal); M81.0 Age-related osteoporosis without current pathological fracture ==